=== PATIENT | male | born 1980 | race Caucasian/White ===

== ENCOUNTER 2022-06-03 10:17 | Emergency (ER) | payer SELFPAY ==
[~2022-06-03] VITALS: Ht 172.7 cm; Wt 75.0 kg
[2022-06-03 10:35] VITALS: BP 115/86
[2022-06-03] MEDS ORDERED: IBUPROFEN 400MG TABLET PO ONE (13:30)
[2022-06-03] MEDS ORDERED: ONDANSETRON 4MG ODT PO ONE (13:30)
[2022-06-03] MEDS ORDERED: ACETAMINOPHEN 325MG TABLET PO ONE (13:30)
[2022-06-03] MEDS ORDERED: DOXY100C5 MT ×2 (15:42)
[2022-06-03] MEDS ORDERED: LIDOCAINE HCL/PF 1% 10 MG/ML 5ML VIAL INFIL ONE (15:45)
[2022-06-03] MEDS ORDERED: TOPUD PO (15:50)
[2022-06-03 16:19] LABS: CLARITY URINE TURBID (CLEAR); COLOR URINE YELLOW (YELLOW); KETONES URINE 2+ (NEGATIVE); LEUKOCYTE ESTERASE URINE 3+ (NEGATIVE); NITRITE URINE NEGATIVE (NEGATIVE); OCCULT BLOOD URINE 3+ (NEGATIVE); PH URINE 5.5 (4.5-8.0); PROTEIN URINE 2+ (NEGATIVE); SPECIFIC GRAVITY URINE 1.023 (1.005-1.030)
[2022-06-03] MEDS ORDERED: LEVO750T68 MT (17:39)
[2022-06-06 06:40] LABS: NEISSERIA GONORRHOEAE NAA Negative (Negative)
== END 2022-06-03 17:05 | disposition home or self-care (01) ==
LOC: ER 10:17
DX: N39.0 Urinary tract infection, site not specified (principal)
CPT/HCPCS: 76870; 81003; 87086; 87491; 87591; 93976; 99284; Q0162

== ENCOUNTER 2022-07-24 16:40 | Emergency (ER) | payer SELFPAY ==
[~2022-07-24] VITALS: Ht 182.9 cm; Wt 64.0 kg
[~2022-07-24 16:40] MED LIST: LEVO750T68 MT; TOPUD PO
[2022-07-24 16:58] VITALS: BP 107/70
[2022-07-24] MEDS ORDERED: IBUPROFEN 600MG TABLET PO ONE (20:45)
[2022-07-24 22:04] LABS: CLARITY URINE CLEAR (CLEAR); COLOR URINE YELLOW (YELLOW); KETONES URINE TRACE (NEGATIVE); LEUKOCYTE ESTERASE URINE 2+ (NEGATIVE); NITRITE URINE NEGATIVE (NEGATIVE); OCCULT BLOOD URINE TRACE (NEGATIVE); PH URINE 5.5 (4.5-8.0); PROTEIN URINE NEGATIVE (NEGATIVE); SPECIFIC GRAVITY URINE 1.023 (1.005-1.030)
[2022-07-24] MEDS ORDERED: CEFTRIAXONE SODIUM 1 G/VIAL IM ONE (22:15)
[2022-07-24] MEDS ORDERED: IBUP-2028 MT (22:23)
[2022-07-24] MEDS ORDERED: LEVO-65 MT (22:23)
[2022-07-24] MEDS ORDERED: AZITHROMYCIN 500 MG TABLET PO ONE (22:30)
[2022-07-27 09:06] LABS: NEISSERIA GONORRHOEAE NAA Negative (Negative)
== END 2022-07-24 23:25 | disposition home or self-care (01) ==
LOC: ER 16:40
DX: N45.1 Epididymitis (principal); N39.0 Urinary tract infection, site not specified
CPT/HCPCS: 76870; 81003; 87077; 87086; 87491; 87591; 93976; 96372; 99285; J0696; Z7610

== ENCOUNTER 2022-08-23 10:46 | Emergency (ER) | payer SELFPAY ==
[~2022-08-23] VITALS: Ht 182.9 cm; Wt 73.0 kg
[~2022-08-23 10:46] MED LIST changes: +IBUP-2028 MT; +LEVO-65 MT
[2022-08-23 10:53] VITALS: BP 112/76
[2022-08-23] MEDS ORDERED: IBUPROFEN 600MG TABLET PO STA (16:45)
[2022-08-23 17:08] LABS: BASOPHILS % 0.6 % (0.0-2.0); EOSINOPHILS % 2.2 % (0.0-5.0); HEMATOCRIT. 45.6 % (42.0-52.0); HEMOGLOBIN. 14.5 g/dL (14.0-18.0); LYMPHOCYTES % 31.6 % (20.0-50.0); MEAN CORPUSCULAR HEMOGLOBIN 28.2 pg (28.0-32.0); MEAN CORPUSCULAR VOLUME 88.8 fL (80.0-94.0); MEAN PLATELET VOLUME 8.8 fl (7.4-10.4); MONOCYTES % 6.6 % (2.0-8.0); PLATELET 260 x1000/uL (130-400); RED BLOOD CELL COUNT 5.13 mill/uL (4.7-6.1); RED CELL DISTRIBUTION WIDTH 14.9 % (11.6-14.6)
[2022-08-23 17:16] LABS: CHLORIDE 108 mEq/L (98-107)
[2022-08-23] MEDS ORDERED: IBUP-2028 MT (18:32)
[2022-08-23] MEDS ORDERED: HYDR30CR80 TP (18:32)
[2022-08-23] MEDS ORDERED: DOCU-138 MT (18:32)
== END 2022-08-23 19:05 | disposition home or self-care (01) ==
LOC: ER 10:46
DX: K62.5 Hemorrhage of anus and rectum (principal); R10.9 Unspecified abdominal pain
CPT/HCPCS: 36415; 74176; 80053; 85025; 99284

== ENCOUNTER 2023-09-17 13:09 | Emergency (ER) | payer SELFPAY ==
[~2023-09-17] VITALS: Ht 172.7 cm; Wt 70.0 kg
[~2023-09-17 13:09] MED LIST changes: +DOCU-138 MT; +HYDR30CR80 TP
[2023-09-17 13:33] VITALS: TEMP 99.4; O2SAT 100
[2023-09-17 14:34] LABS: CLARITY URINE CLEAR (CLEAR); COLOR URINE YELLOW (YELLOW); GLUCOSE URINE NEGATIVE (NEGATIVE); KETONES URINE NEGATIVE (NEGATIVE); LEUKOCYTE ESTERASE URINE 3+ (NEGATIVE); NITRITE URINE NEGATIVE (NEGATIVE); OCCULT BLOOD URINE TRACE (NEGATIVE); PH URINE 6.5 (4.5-8.0); PROTEIN URINE NEGATIVE (NEGATIVE); SPECIFIC GRAVITY URINE 1.018 (1.005-1.030); UROBILINOGEN URINE 0.2 E.U./dL (0.2-1.0)
[2023-09-17 15:07] LABS: SQUAMOUS EPITHELIAL CELL URINE RARE /lpf (RARE/1+)
[2023-09-17 15:09] LABS: BACTERIA URINE 1+; RBC URINE 0-2 /hpf (0-2); WBC URINE 25-50 /hpf (0-2)
[2023-09-17 15:52] LABS: BASOPHILS % 0.3 % (0.0-2.0); EOSINOPHILS % 0.3 % (0.0-5.0); HEMATOCRIT. 44.1 % (42.0-52.0); HEMOGLOBIN. 14.5 g/dL (14.0-18.0); LYMPHOCYTES % 10.9 % (20.0-50.0); MEAN CORPUSCULAR HEMOGLOBIN 29.2 pg (28.0-32.0); MEAN CORPUSCULAR HGB CONC 32.9 g/dL (31.0-37.0); MEAN CORPUSCULAR VOLUME 88.8 fL (80.0-94.0); MEAN PLATELET VOLUME 9.1 fl (7.4-10.4); MONOCYTES % 6.3 % (2.0-8.0); NEUTROPHILS % 82.2 % (40.0-76.0); PLATELET 280 x1000/uL (130-400); RED BLOOD CELL COUNT 4.96 mill/uL (4.7-6.1); RED CELL DISTRIBUTION WIDTH 14.8 % (11.6-14.6); WHITE BLOOD COUNT 18.3 x1000/uL (4.5-11.0)
[2023-09-17 16:13] LABS: ALANINE AMINOTRANSFERASE 22 IU/L (10-49); ALBUMIN 5.2 g/dL (3.2-4.8); ASPARTATE AMINOTRANSFERASE 22 IU/L (<34); BILIRUBIN TOTAL 0.8 mg/dL (0.1-1.0); CALCIUM 9.5 mg/dL (8.7-10.4); CARBON DIOXIDE 25 mEq/L (21-32); CHLORIDE 104 mEq/L (98-107); CREATININE 0.8 mg/dL (0.6-1.3); GLUCOSE 92 mg/dL (70-105); POTASSIUM 4.2 mEq/L (3.5-5.1); PROTEIN TOTAL 8.4 g/dL (6.0-8.3); SODIUM 135 mEq/L (136-145); UREA NITROGEN BLOOD 8 mg/dL (9-23)
[2023-09-17] MEDS ORDERED: KETOROLAC 30MG/ML VIAL IV STA (17:49)
[2023-09-17] MEDS: CEFTRIAXONE 1GM/50ML 50 ML IV ONE (18:00)
[2023-09-17 20:18] VITALS: BP 125/83; PULSE 82
[2023-09-17] MEDS: KETOROLAC 30MG/ML VIAL IV NR (20:18)
[2023-09-17] MEDS ORDERED: DOXY-456 MT (21:05)
[2023-09-20 07:06] LABS: CHLAMYDIA TRACHOMATIS NAA Negative (Negative); NEISSERIA GONORRHOEAE NAA Negative (Negative)
== END 2023-09-17 21:49 | disposition home or self-care (01) ==
LOC: ER 14:16
DX: K52.9 Noninfective gastroenteritis and colitis, unspecified (principal); N39.0 Urinary tract infection, site not specified; N43.3 Hydrocele, unspecified; J45.909 Unspecified asthma, uncomplicated; Z79.899 Other long term (current) drug therapy
CPT/HCPCS: 87491; 87591; 80053; 81003; 85025; 87086; 36415; 74177; 93976; 76870; 96365; 96366; 96375; 99285; J0696; J1885; Z7610

== ENCOUNTER 2024-04-27 12:06 | Emergency (ER) | payer SELFPAY ==
[~2024-04-27] VITALS: Ht 182.9 cm; Wt 67.0 kg
[~2024-04-27 12:06] MED LIST changes: +DOXY100C74 MT
[2024-04-27 12:25] VITALS: O2SAT 99
[2024-04-27 12:34] VITALS: TEMP 98.5; O2SAT 99
[2024-04-27 13:28] VITALS: BP 123/81; PULSE 68; RESP 18
[2024-04-27] MEDS: KETOROLAC 15MG/ML VIAL IM NR (13:28)
[2024-04-27 13:57] LABS: CLARITY URINE CLEAR (CLEAR); COLOR URINE YELLOW (YELLOW); GLUCOSE URINE NEGATIVE (NEGATIVE); KETONES URINE NEGATIVE (NEGATIVE); LEUKOCYTE ESTERASE URINE NEGATIVE (NEGATIVE); NITRITE URINE NEGATIVE (NEGATIVE); OCCULT BLOOD URINE NEGATIVE (NEGATIVE); PROTEIN URINE NEGATIVE (NEGATIVE); SPECIFIC GRAVITY URINE 1.017 (1.005-1.030); UROBILINOGEN URINE 0.2 E.U./dL (0.2-1.0)
[2024-04-27 15:43] LABS: BASOPHILS % 0.4 % (0.0-2.0); EOSINOPHILS % 3.6 % (0.0-5.0); HEMATOCRIT. 40.4 % (42.0-52.0); HEMOGLOBIN. 13.2 g/dL (14.0-18.0); LYMPHOCYTES % 32.1 % (20.0-50.0); MEAN CORPUSCULAR HEMOGLOBIN 29.5 pg (28.0-32.0); MEAN CORPUSCULAR HGB CONC 32.7 g/dL (31.0-37.0); MEAN CORPUSCULAR VOLUME 90.3 fL (80.0-94.0); MEAN PLATELET VOLUME 8.4 fl (7.4-10.4); MONOCYTES % 6.4 % (2.0-8.0); NEUTROPHILS % 57.5 % (40.0-76.0); PLATELET 297 x1000/uL (130-400); RED BLOOD CELL COUNT 4.47 mill/uL (4.7-6.1); RED CELL DISTRIBUTION WIDTH 14.3 % (11.6-14.6); WHITE BLOOD COUNT 7.9 x1000/uL (4.5-11.0)
[2024-04-27 15:50] LABS: CHLORIDE 108 mEq/L (98-107); SODIUM 142 mEq/L (136-145)
[2024-04-27 15:51] LABS: CARBON DIOXIDE 32 mEq/L (21-32)
[2024-04-27 15:56] LABS: CREATININE 0.8 mg/dL (0.6-1.3)
[2024-04-27 15:57] LABS: GLUCOSE 105 mg/dL (70-105); UREA NITROGEN BLOOD 9 mg/dL (9-23)
[2024-04-27 15:58] LABS: ALANINE AMINOTRANSFERASE 18 IU/L (10-49); ALBUMIN 4.6 g/dL (3.2-4.8); ASPARTATE AMINOTRANSFERASE 17 IU/L (<34)
[2024-04-27 15:59] LABS: BILIRUBIN DIRECT 0.2 mg/dL (<=3.0); BILIRUBIN TOTAL 0.5 mg/dL (0.1-1.0); PROTEIN TOTAL 7.6 g/dL (6.0-8.3)
== END 2024-04-27 16:00 | disposition home or self-care (01) ==
LOC: ER 12:06
DX: R10.9 Unspecified abdominal pain (principal); J45.909 Unspecified asthma, uncomplicated; Z87.442 Personal history of urinary calculi; Z88.5 Allergy status to narcotic agent; Z79.899 Other long term (current) drug therapy
CPT/HCPCS: 99285; 74176; 80076; 80048; 81003; 83690; 85025; 36415; 96372; J1885